=== PATIENT | male | born 1955 | race Caucasian/White ===

== ENCOUNTER 2016-07-31 12:30 | Day surgery (SDC) | payer BC ==
[~2016-07-31] VITALS: Ht 167.6 cm; Wt 71.5 kg
[2016-07-31 13:07] VITALS: BP 167/103; PULSE 61; TEMP 98.1
[2016-07-31] MEDS ORDERED: ATIVAN 1MG T1 MG/TAB PO (13:19)
[2016-07-31] MEDS ORDERED: BYSTOLIC10 MG PO (13:19)
[2016-07-31] MEDS ORDERED: ZOLOFT 25MG25 MG PO (13:20)
[2016-07-31] MEDS ORDERED: NEXIUM 40MG40 MG PO (13:21)
[2016-07-31] MEDS ORDERED: PROCARDIA XL 6060 MG PO (13:21)
[2016-07-31] MEDS ORDERED: FLONASEALLERGY NS (13:22)
[2016-07-31] MEDS ORDERED: CLARITIN 1010 MG/TAB PO (13:24)
[2016-07-31 14:00] VITALS: BP 129/95; PULSE 64; TEMP 98.2
[2016-07-31 14:15] VITALS: BP 120/96; PULSE 65
[2016-07-31 14:30] VITALS: BP 120/96; PULSE 57
[2016-07-31 15:02] VITALS: BP 132/101; PULSE 61
== END 2016-07-31 14:40 | disposition home or self-care (01) ==
LOC: SDCO 12:30
DX: Z12.11 Encounter for screening for malignant neoplasm of colon (principal); I10 Essential (primary) hypertension; K21.9 Gastro-esophageal reflux disease without esophagitis; K22.2 Esophageal obstruction; K44.9 Diaphragmatic hernia without obstruction or gangrene; F41.9 Anxiety disorder, unspecified
CPT/HCPCS: OP; J2250; J3010; J7030

== ENCOUNTER → 2017-01-29 | Outpatient (CLI) | payer BC ==
[~2017-01-29] MED LIST: ATIVAN 1MG T1 MG/TAB PO; BYSTOLIC10 MG PO; CLARITIN 1010 MG/TAB PO; FLONASEALLERGY NS; NEXIUM 40MG40 MG PO; PROCARDIA XL 6060 MG PO; ZOLOFT 25MG25 MG PO
== END ==
LOC: COL.LAB 14:19
DX: F41.9 Anxiety disorder, unspecified (principal)

== ENCOUNTER → 2017-04-05 | Outpatient (CLI) | payer BC | LOC: COL.RAD 14:14 | DX: R30.0 Dysuria (principal); Z98.890 Other specified postprocedural states ==

== ENCOUNTER → 2017-04-05 | Outpatient (CLI) | payer BC ==
[2017-04-05 16:39] LABS: CALCIUM 9.3 mg/dL (8.4-10.2); CREATININE, serum 0.9 mg/dL (0.66-1.25); POTASSIUM 4.1 mmol/L (3.4-5.0)
== END ==
LOC: COL.LAB 11:03
PROVIDERS: Family Medicine
DX: N20.0 Calculus of kidney (principal)

== ENCOUNTER → 2017-05-08 | Outpatient (CLI) | payer BC ==
[2017-05-08 14:38] LABS: CHOLESTEROL RISK RATIO 3.5
[2017-05-08 14:39] LABS: BASO # 0.1 (0.0-0.2); BASO % 0.7 % (0.0-2.0); EOS # 0.2 (0.0-0.7); EOS % 2.8 % (0-4.0); HEMATOCRIT 43.3 % (42.0-52.0); HEMOGLOBIN 14.4 g/dl (13.5-18.0); LYMPH # 1.9 (1.2-3.4); LYMPH % 27.6 % (20.0-51.0); MEAN CELL VOLUME 87 fl (80.0-100.0); MEAN CORPUSCULAR HEMOGLOBIN 29 pg (27.0-31.0); MEAN CORPUSCULAR HGB CONC 33 g/dl (33.0-37.0); MEAN PLATELET VOLUME 9.9 fl (7.4-10.4); MONO # 0.7 (0.1-0.6); MONO % 10.5 % (1.7-9.3); PLATELET COUNT 325 K/mm3 (130-400); RED BLOOD COUNT 4.99 M/mm3 (4.20-5.60); REDCELL DISTRIBUTION WIDTH-CV 13.2 % (11.5-14.5)
== END ==
LOC: COL.LAB 09:32
PROVIDERS: Family Medicine
DX: Z13.1 Encounter for screening for diabetes mellitus (principal); Z13.220 Encounter for screening for lipoid disorders; I10 Essential (primary) hypertension

== ENCOUNTER 2018-04-25 22:12 | Emergency (ER) | payer BC ==
[~2018-04-25] VITALS: Ht 167.6 cm; Wt 68.2 kg
[2018-04-25 22:14] VITALS: TEMP 97.9
[2018-04-25] MEDS ORDERED: PRINIVIL40 MG PO (22:29)
[2018-04-25] MEDS ORDERED: MICROZIDE12.5 MG PO (22:30)
[2018-04-25 22:54] LABS: BASO % 0.5 % (0.0-2.0); EOS # 0.3 (0.0-0.7); EOS % 3.6 % (0-4.0); GRAN # 4.2 (1.4-6.5); GRAN % 49.6 % (42.2-75.2); HEMATOCRIT 44.9 % (42.0-52.0); HEMOGLOBIN 15.4 g/dl (13.5-18.0); LYMPH % 35.1 % (20.0-51.0); MEAN CELL VOLUME 84 fl (80.0-100.0); MEAN CORPUSCULAR HEMOGLOBIN 29 pg (27.0-31.0); MEAN CORPUSCULAR HGB CONC 34 g/dl (33.0-37.0); MEAN PLATELET VOLUME 9.3 fl (7.4-10.4); MONO # 0.9 (0.1-0.6); MONO % 10.7 % (1.7-9.3); PLATELET COUNT 318 K/mm3 (130-400); RED BLOOD COUNT 5.32 M/mm3 (4.20-5.60); REDCELL DISTRIBUTION WIDTH-CV 12.9 % (11.5-14.5)
[2018-04-25 23:02] LABS: PROTHROMBIN TIME 11.3 SECONDS (9.7-12.8)
[2018-04-25 23:04] LABS: ALANINE AMINOTRANSFERASE 17 U/L (21-72); ALBUMIN 4.3 gm/dL (3.5-5.0); ALKALINE PHOSPHATASE 41 U/L (50-136); ANION GAP 11 mmol/L (7-16); AST,SGOT 22 U/L (15-37); BILIRUBIN,TOTAL 0.5 mg/dL (0.0-1.0); BLOOD UREA NITROGEN 17 mg/dL (9-20); CALCIUM 9.6 mg/dL (8.4-10.2); CARBON DIOXIDE 29 mmol/L (22-30); CHLORIDE 98 mmol/L (98-107); CREATININE, serum 0.95 mg/dL (0.66-1.25); GLUCOSE 103 mg/dL (74-106); SODIUM 138 mmol/L (137-145); TOTAL PROTEIN 7.5 gm/dL (6.4-8.2)
[2018-04-25 23:05] LABS: PARTIAL THROMBOPLASTIN TIME 35.4 SECONDS (26.0-37.0)
[2018-04-25 23:15] LABS: TROPONIN-I < 0.012 ng/mL (0.000-0.035)
[2018-04-26 00:51] VITALS: BP 161/98; PULSE 75
== END 2018-04-26 00:56 | disposition home or self-care (01) ==
LOC: COL.ER 22:12
PROVIDERS: Family Medicine
DX: I10 Essential (primary) hypertension (principal)
CPT/HCPCS: J0360

== ENCOUNTER → 2019-01-26 | Outpatient (CLI) | payer BC ==
[~2019-01-26] MED LIST changes: +MICROZIDE12.5 MG PO; +PRINIVIL40 MG PO
== END ==
LOC: COL.VAS 09:38
DX: I10 Essential (primary) hypertension (principal); I34.0 Nonrheumatic mitral (valve) insufficiency